=== PATIENT | male | born 1965 | race Caucasian/White ===

== ENCOUNTER 2017-01-04 14:46 | Emergency (ER) | payer MEDICARE, MEDICAID ==
[~2017-01-04] VITALS: Ht 172.7 cm; Wt 86.2 kg
[~2017-01-04 14:46] MED LIST: ASPIRIN-LOW81 MG ORAL; COLACE100 MG ORAL; CYMBALTA20 MG ORAL; DOCUSATE SODIU100 MG ORAL; METOPROLOL TART25 MG ORAL; MIRALAX17 GM ORAL; NICODERM 21MG/241 EA TDERMAL; NKM; NORCO 5-325 TA1 EACH ORAL; SIMVASTATIN20 MG ORAL; ZOLOFT25 MG ORAL
[2017-01-04 14:57] VITALS: BP 134/83
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
[2017-01-04 15:30] VITALS: BP 138/81
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
[2017-01-04 15:41] VITALS: BP 138/81
--- NOTE | 2017-01-05 09:30 | Diagnostic Imaging Report ---
Indications: PAIN Technique: Two views of the right femur Comparison: None Findings: No acute fractures. No dislocations. The joint spaces are preserved. Impression: Negative
== END 2017-01-04 15:41 | disposition home or self-care (01) ==
LOC: EMR 15:12
DX: M79.651 Pain in right thigh (principal); S00.93XA Contusion of unspecified part of head, initial encounter; W01.0XXA Fall on same level from slipping, tripping and stumbling without subsequent striking against object, initial encounter; Y92.008 Other place in unspecified non-institutional (private) residence as the place of occurrence of the external cause; R51 Headache
CPT/HCPCS: 70450; 99284

== ENCOUNTER 2017-04-03 06:45 | Inpatient (IN) | payer MEDICARE, MEDICAID ==
[2017-04-03] VITALS (7 sets, daily range): BP systolic 100–127; BP diastolic 56–80
[~2017-04-03] VITALS: Ht 172.7 cm; Wt 86.2 kg
[2017-04-03] MEDS: NS w/KCl 20mEq 1,000 ML IV SCH ×2 (02:54→12:23)
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
[2017-04-03 07:24] LABS: APPEARANCE,URINE CLEAR; KETONES,URINE NEGATIVE (NEGATIVE); LEUKOCYTE ESTERASE ,URINE NEGATIVE (NEGATIVE); NITRITE,URINE NEGATIVE (NEGATIVE); PH,URINE 6 (4.5-8.0); PROTEIN,URINE NEGATIVE (NEGATIVE); UROBILINOGEN,URINE NORMAL MG/DL (0.0-1.0)
[2017-04-03 07:26] LABS: BASOPHILS % (AUTO) 1.5 % (0.0-2.0); EOSINOPHILS % (AUTO) 1.7 % (0.0-3.0); LYMPHOCYTES % (AUTO) 23.7 % (20.0-45.0); MEAN CORPUSCULAR HGB CONC 32.8 G/DL (32.0-36.0); MEAN CORPUSCULAR VOLUME 88 FL (80-99); MEAN PLATELET VOLUME 5.7 FL (6.5-10.1); MONOCYTES % (AUTO) 6.7 % (1.0-10.0); NEUTROPHILS % (AUTO) 66.5 % (45.0-75.0); PLATELET COUNT 417 K/UL (150-450); RED BLOOD COUNT 5.87 M/UL (4.70-6.10); RED CELL DISTRIBUTION WIDTH 12.2 % (11.6-14.8); WHITE BLOOD COUNT 13.7 K/UL (4.8-10.8)
[2017-04-03] MEDS ORDERED: Morphine Sulfate 4mg/ml Inj IVP ONE ×3 (07:30→10:00)
[2017-04-03 07:46] LABS: ALANINE AMINOTRANSFERASE 37 U/L (12-78); ANION GAP 7 mmol/L (5-15); ASPARTATE AMINO TRANSFERASE 26 U/L (15-37); CALCIUM 10.4 MG/DL (8.5-10.1); CARBON DIOXIDE 27 MMOL/L (21-32); CHLORIDE 103 MMOL/L (98-107); GLOMERULAR FILTRATION RATE > 60 mL/min (>60); LIPASE 726 U/L (73-393); POTASSIUM 4.5 MMOL/L (3.5-5.1); SODIUM 137 MMOL/L (136-145); TOTAL PROTEIN 8.5 G/DL (6.4-8.2)
[2017-04-03 07:46] LABS: BACTERIA,URINE FEW /HPF; SQUAMOUS EPITHELIAL CELL,UR OCCASIONAL /LPF (NONE/OCC); WBC,URINE 0-2 /HPF (0 - 0)
[2017-04-03] MEDS ORDERED: COLACE100 MG ORAL (08:26)
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
[2017-04-03] MEDS ORDERED: Hydromorphone 0.5mg/0.5ml inj IVP PRN ×2 (11:15→17:15)
[2017-04-03] MEDS: Morphine Sulfate 2mg/ml Inj IVP PRN (20:16)
--- NOTE | 2017-04-03 22:29 | Cardiology Progress Note ---
Subjective Subjective [id number] Objective Last 24 Hour Vital Signs Date Time Temp Pulse Resp B/P (MAP) Pulse Ox O2 Delivery O2 Flow Rate FiO2 04/03/17 19:44 97.9 66 18 114/74 94 04/03/17 16:28 97.1 67 20 108/56 98 Room Air 04/03/17 10:50 97.4 67 20 100/58 98 Room Air 04/03/17 10:14 98.2 57 20 111/73 99 Room Air 04/03/17 09:55 57 20 111/73 99 Room Air 04/03/17 09:10 98.2 04/03/17 08:03 98.2 04/03/17 08:03 61 18 117/80 99 Room Air 04/03/17 07:04 98.2 18 125/80 98 Room Air 04/03/17 06:48 97.5 87 16 125/80 98 Room Air Intake and Output 04/03/17 04/04/17 19:00 07:00 Intake Total 1450 ml 75 ml Output Total 1000 ml Balance 1450 ml -925 ml Intake IV Total 1450 ml 75 ml Output Urine Total 1000 ml # Voids 3 Laboratory Tests Test 04/03/17 06:53 04/03/17 07:05 Urine Color Pale yellow Urine Appearance Clear Urine pH 6 (4.5-8.0) Urine Specific [place] 1.025 (1.005-1.035) Urine Protein Negative (NEGATIVE) Urine Glucose (UA) Negative (NEGATIVE) Urine Ketones Negative (NEGATIVE) Urine Occult Blood 1+ (NEGATIVE) H Urine Nitrite Negative (NEGATIVE) Urine Bilirubin Negative (NEGATIVE) Urine Urobilinogen Normal MG/DL (0.0-1.0) Urine Leukocyte Esterase Negative (NEGATIVE) Urine RBC 2-4 /HPF (0 - 0) H Urine WBC 0-2 /HPF (0 - 0) Urine Squamous Epithelial Cells Occasional /LPF Urine Bacteria Few /HPF (NONE) White Blood Count 13.7 K/UL (4.8-10.8) H Red Blood Count 5.87 M/UL (4.70-6.10) Hemoglobin 17.0 G/DL (14.2-18.0) Hematocrit 51.7 % (42.0-52.0) Mean Corpuscular Volume 88 FL (80-99) Mean Corpuscular Hemoglobin 29.0 PG (27.0-31.0) Mean Corpuscular Hemoglobin Concent 32.8 G/DL (32.0-36.0) Red Cell Distribution Width 12.2 % (11.6-14.8) Platelet Count 417 K/UL (150-450) Mean Platelet Volume 5.7 FL (6.5-10.1) L Neutrophils (%) (Auto) 66.5 % (45.0-75.0) Lymphocytes (%) (Auto) 23.7 % (20.0-45.0) Monocytes (%) (Auto) 6.7 % (1.0-10.0) Eosinophils (%) (Auto) 1.7 % (0.0-3.0) Basophils (%) (Auto) 1.5 % (0.0-2.0) Sodium Level 137 MMOL/L (136-145) Potassium Level 4.5 MMOL/L (3.5-5.1) Chloride Level 103 MMOL/L (98-107) Carbon Dioxide Level 27 MMOL/L (21-32) Anion Gap 7 mmol/L (5-15) Blood Urea Nitrogen 29 mg/dL (7-18) H Creatinine 1.0 MG/DL (0.55-1.30) Estimat Glomerular Filtration Rate > 60 mL/min (>60) Glucose Level 121 MG/DL (74-106) H Calcium Level 10.4 MG/DL (8.5-10.1) H Total Bilirubin 0.5 MG/DL (0.2-1.0) Aspartate Amino Transf (AST/SGOT) 26 U/L (15-37) Alanine Aminotransferase (ALT/SGPT) 37 U/L (12-78) Alkaline Phosphatase 66 U/L (46-116) Troponin I 0.000 ng/mL (0.000-0.056) Total Protein 8.5 G/DL (6.4-8.2) H Albumin 4.3 G/DL (3.4-5.0) Globulin 4.2 g/dL Albumin/Globulin Ratio 1.0 (1.0-2.7) Lipase 726 U/L (73-393) H NEFTALY STINSON Apr 03, 2017 22:29
[2017-04-03] MEDS: Hydromorphone 0.5mg/0.5ml inj IVP PRN (23:41)
[2017-04-04 03:48] VITALS: BP 121/73
[2017-04-04] MEDS: Hydromorphone 0.5mg/0.5ml inj IVP PRN (05:58)
[2017-04-04 08:26] VITALS: BP 117/72
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
[2017-04-04] MEDS: Morphine Sulfate 2mg/ml Inj IVP PRN ×2 (10:31→14:24)
[2017-04-04 11:02] LABS: BASOPHILS % (AUTO) 0.7 % (0.0-2.0); EOSINOPHILS % (AUTO) 0.8 % (0.0-3.0); LYMPHOCYTES % (AUTO) 14.3 % (20.0-45.0); MEAN CORPUSCULAR HEMOGLOBIN 28.8 PG (27.0-31.0); MEAN CORPUSCULAR VOLUME 90 FL (80-99); MEAN PLATELET VOLUME 6.2 FL (6.5-10.1); MONOCYTES % (AUTO) 9.4 % (1.0-10.0); NEUTROPHILS % (AUTO) 74.7 % (45.0-75.0); PLATELET COUNT 361 K/UL (150-450); RED BLOOD COUNT 5.58 M/UL (4.70-6.10); RED CELL DISTRIBUTION WIDTH 12.4 % (11.6-14.8); WHITE BLOOD COUNT 11.4 K/UL (4.8-10.8)
[2017-04-04 11:25] LABS: ALANINE AMINOTRANSFERASE 26 U/L (12-78); ALBUMIN/GLOBULIN RATIO 0.9 (1.0-2.7); AMYLASE 84 U/L (25-115); ANION GAP 11 mmol/L (5-15); ASPARTATE AMINO TRANSFERASE 18 U/L (15-37); CALCIUM 9.3 MG/DL (8.5-10.1); CARBON DIOXIDE 25 MMOL/L (21-32); CHLORIDE 106 MMOL/L (98-107); CREATININE 0.9 MG/DL (0.55-1.30); GLOMERULAR FILTRATION RATE > 60 mL/min (>60); LACTATE DEHYDROGENASE 150 U/L (81-234); LIPASE 247 U/L (73-393); POTASSIUM 4.4 MMOL/L (3.5-5.1); SODIUM 142 MMOL/L (136-145); TOTAL PROTEIN 7.5 G/DL (6.4-8.2)
[2017-04-04 12:33] VITALS: BP 122/72
[2017-04-04] MEDS: NS w/KCl 20mEq 1,000 ML IV SCH (14:23)
[2017-04-04 16:06] VITALS: BP 151/96
[2017-04-04 16:10] VITALS: BP 130/83
[2017-04-04] MEDS ORDERED: HYDROmorphone 1mg/ml Carpuject IVP PRN ×2 (16:45)
[2017-04-04 20:00] VITALS: BP 128/72
--- NOTE | 2017-04-04 21:30 | Cardiology Progress Note ---
Assessment/Plan Assessment/Plan will discharge if tolerate diet Subjective Subjective the patient feels much better, he had BM and his abdominal distention resolved Objective Last 24 Hour Vital Signs Date Time Temp Pulse Resp B/P (MAP) Pulse Ox O2 Delivery O2 Flow Rate FiO2 04/04/17 20:00 97.3 88 20 128/72 95 Room Air 04/04/17 16:10 96.6 97 19 130/83 93 Room Air 04/04/17 16:06 98.4 119 20 151/96 96 Room Air 04/04/17 12:33 98.2 73 20 122/72 96 Room Air 04/04/17 08:26 98.1 82 20 117/72 96 Room Air 04/04/17 03:48 97.5 66 20 121/73 94 Room Air 04/03/17 23:48 98.4 83 20 127/77 92 Room Air General Appearance: WD/WN EENT: PERRL/EOMI Neck: supple Rhythm: NSR Cardiovascular: normal rate Respiratory/Chest: lungs clear Abdomen: normal bowel sounds, soft Extremities: normal range of motion Intake and Output 04/04/17 04/05/17 19:00 07:00 Intake Total 525 ml Output Total 600 ml Balance -75 ml Intake IV Total 525 ml Output Urine Total 600 ml Laboratory Tests Test 04/04/17 10:50 White Blood Count 11.4 K/UL (4.8-10.8) H Red Blood Count 5.58 M/UL (4.70-6.10) Hemoglobin 16.1 G/DL (14.2-18.0) Hematocrit 50.3 % (42.0-52.0) Mean Corpuscular Volume 90 FL (80-99) Mean Corpuscular Hemoglobin 28.8 PG (27.0-31.0) Mean Corpuscular Hemoglobin Concent 32.0 G/DL (32.0-36.0) Red Cell Distribution Width 12.4 % (11.6-14.8) Platelet Count 361 K/UL (150-450) Mean Platelet Volume 6.2 FL (6.5-10.1) L Neutrophils (%) (Auto) 74.7 % (45.0-75.0) Lymphocytes (%) (Auto) 14.3 % (20.0-45.0) L Monocytes (%) (Auto) 9.4 % (1.0-10.0) Eosinophils (%) (Auto) 0.8 % (0.0-3.0) Basophils (%) (Auto) 0.7 % (0.0-2.0) Sodium Level 142 MMOL/L (136-145) Potassium Level 4.4 MMOL/L (3.5-5.1) Chloride Level 106 MMOL/L (98-107) Carbon Dioxide Level 25 MMOL/L (21-32) Anion Gap 11 mmol/L (5-15) Blood Urea Nitrogen 26 mg/dL (7-18) H Creatinine 0.9 MG/DL (0.55-1.30) Estimat Glomerular Filtration Rate > 60 mL/min (>60) Glucose Level 96 MG/DL (74-106) Calcium Level 9.3 MG/DL (8.5-10.1) Total Bilirubin 0.5 MG/DL (0.2-1.0) Aspartate Amino Transf (AST/SGOT) 18 U/L (15-37) Alanine Aminotransferase (ALT/SGPT) 26 U/L (12-78) Alkaline Phosphatase 50 U/L (46-116) Lactate Dehydrogenase 150 U/L (81-234) Total Protein 7.5 G/DL (6.4-8.2) Albumin 3.5 G/DL (3.4-5.0) Globulin 4.0 g/dL Albumin/Globulin Ratio 0.9 (1.0-2.7) L Amylase Level 84 U/L (25-115) Lipase 247 U/L (73-393) NEFTALY STINSON Apr 04, 2017 21:30
--- NOTE | 2017-04-05 15:25 | Cardiology Report ---
APPROVED REPORT EKG Measurement Heart [id number] Normal sinus rhythm Junctional ST depression, probably abnormal Abnormal ECG
--- NOTE | 2017-04-06 10:09 | Discharge Summary ---
Discharge Summary Hospital Course Date of Admission Apr 03, 2017 at 08:18 Date of Discharge Apr 04, 2017 at 20:10 Admitting Diagnosis pancreatitis HPI Basilio Garcia is a 51 year old male who was admitted on Apr 03, 2017 at 08:18 for Pancreatitis, Small Bowel Obstruction Hospital Course [id number] Discharge Discharge Disposition Patient was discharged to Home (01) Discharge Diagnoses: Franca Galindo NP Apr 06, 2017 10:09
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
== END 2017-04-04 20:10 | disposition home or self-care (01) | DRG 388 ==
LOC: EMR 07:15 → 4W 08:18 → EDBEDREQ 09:34
DX: K56.50 Intestinal adhesions [bands], unspecified as to partial versus complete obstruction (principal); K85.90 Acute pancreatitis without necrosis or infection, unspecified; W34.00XS Accidental discharge from unspecified firearms or gun, sequela; Z98.890 Other specified postprocedural states
CPT/HCPCS: 36415; 74177; 80053; 81003; 82150; 83615; 83690; 84484; 85025; 93005; 99285; J2405

== ENCOUNTER 2019-11-28 18:15 | Emergency (ER) | payer MEDICARE, MEDICAID ==
[~2019-11-28] VITALS: Ht 172.7 cm; Wt 80.7 kg
[2019-11-28] MEDS ORDERED: Ketorolac 30mg Inj IM ONE (18:45)
[2019-11-28] MEDS ORDERED: Tetanus/Diptheria/Pertussis IM ONE (18:45)
[2019-11-28] MEDS ORDERED: Tylenol #3 tab (300mg/30mg) ORAL ONE (18:45)
[2019-11-28 19:00] VITALS: BP 110/70
[2019-11-28] MEDS ORDERED: Lidocaine 1% 10mg/ml/EPI 0.01mg/ml 30ml INJ ONE (19:15)
[2019-11-28] MEDS ORDERED: Lidocaine 2% 20mg/ml/EPI 0.01mg/ml 20ml ONE (19:16)
[2019-11-28] MEDS ORDERED: Bacitracin Oint UD TOPIC ONE ×2 (19:47→20:00)
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
[2019-11-28] MEDS ORDERED: IBU800 MG PO (19:48)
[2019-11-28] MEDS ORDERED: CEPHALEXIN500 MG ORAL (19:48)
[2019-11-28 19:50] VITALS: BP 110/70
--- NOTE | 2019-11-29 12:40 | Diagnostic Imaging Report ---
Indication: Forearm pain status post injury/trauma Technique: 2 views of the left forearm Comparison: None FINDINGS-IMPRESSION: There is a laceration involving the volar soft tissues of the distal forearm with some small foci of subcutaneous gas. Bone mineralization within normal limits. There is no evidence of acute fracture or dislocation. Small ossific/calcific density projects in the soft tissues at the level of the elbow which may represent dystrophic soft tissue calcification. Otherwise no definite retained radiopaque foreign body. This corresponds with the preliminary interpretation of the treating ER physician, as documented in the electronic medical record.
== END 2019-11-28 19:50 | disposition home or self-care (01) ==
LOC: EMR 18:42
DX: S51.812A Laceration without foreign body of left forearm, initial encounter (principal); W26.0XXA Contact with knife, initial encounter; Y93.89 Activity, other specified; Y92.9 Unspecified place or not applicable
CPT/HCPCS: 12001; 73090; 90471; 90715; 96372; 99283; J1885